=== PATIENT | male | born 1980 | race Two or more races ===

== ENCOUNTER 2019-08-30 13:46 | Emergency (ER) | payer BC ==
--- NOTE | 2019-08-30 13:50 | NUR ---
CALLED TO TRIAGE,NO ANSWER
--- NOTE | 2019-08-30 13:58 | NUR ---
called for triage not in the waiting room
--- NOTE | 2019-08-30 14:07 | NUR ---
called for triage not in the waiting room
== END 2019-08-30 14:08 | disposition left against medical advice (07) ==
LOC: ER 13:46
DX: Z53.21 Procedure and treatment not carried out due to patient leaving prior to being seen by health care provider (principal)